=== PATIENT | female | born 2005 | race Asian ===

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

== ENCOUNTER 2025-01-01 01:59 | Outpatient (CLI) | payer OTHER, SELFPAY | END 2025-01-01 02:00 | disposition home or self-care (01) | LOC: AMB 01-03 12:34 | PROVIDERS: Visit Provider Family Medicine | DX: R45.851 Suicidal ideations (principal) | CPT/HCPCS: A0425; A0428 ==